=== PATIENT | female | born 1965 ===

== ENCOUNTER 2018-07-22 07:30 | Outpatient (CLI) | payer OTHER | END 2018-07-22 07:33 | disposition home or self-care (01) | LOC: SONOGRAMA 07:30 | DX: E04.1 Nontoxic single thyroid nodule (principal) ==

== ENCOUNTER 2018-12-16 11:17 | Outpatient (CLI) | payer OTHER | END 2018-12-16 13:15 | disposition home or self-care (01) | LOC: NUCLEAR 11:17 | DX: C73 Malignant neoplasm of thyroid gland (principal) | CPT/HCPCS: 79005; A9517 ==

== ENCOUNTER 2018-12-20 15:20 | Outpatient (CLI) | payer OTHER | END 2018-12-20 15:24 | disposition home or self-care (01) | LOC: NUCLEAR 15:20 | DX: C73 Malignant neoplasm of thyroid gland (principal) ==